=== PATIENT | female | born 1950 | race Caucasian/White ===

== ENCOUNTER 2016-07-25 18:16 | Inpatient (IN) | payer OTHER, MEDICARE ==
[~2016-07-25] VITALS: Ht 157.5 cm; Wt 66.7 kg
[2016-07-25 20:30] VITALS: BP 105/77; PULSE 65; RESP 18; O2SAT 95
[2016-07-25] MEDS ORDERED: PANT40TA2 PO (20:54)
[2016-07-25] MEDS ORDERED: RNT300T PO (20:54)
[2016-07-25] MEDS ORDERED: Heparin Initial Bolus IVPUSH ONE (20:55)
[2016-07-25] MEDS ORDERED: Heparin Protocol Boluses IVPUSH PRN (20:55)
[2016-07-25] MEDS ORDERED: Heparin 25K Unit/500mL 0.45 NS 25,000 UNIT in IV Premix 1 EACH IV SCH (20:55)
[2016-07-25] MEDS ORDERED: Pantoprazole 40 mg ER24 Tablet PO SCH (21:00)
[2016-07-25] MEDS ORDERED: Atropine 1 mg/10 mL (Code) Syringe IVPUSH PRN (21:15)
[2016-07-25] MEDS ORDERED: Ondansetron 2 mg/mL 2 mL Inj IVPUSH PRN (21:15)
[2016-07-25] MEDS ORDERED: Senna-Docusate 8.6-50 mg Tablet PO PRN (21:15)
[2016-07-25] MEDS ORDERED: Alum-Mag Hydrox-Simeth 30 mL Suspension PO PRN (21:15)
[2016-07-25] MEDS ORDERED: Polyethylene Glycol (PEG) 17 Gm Powder PO PRN (21:15)
--- NOTE | 2016-07-25 21:31 | PCM.HPMED ---
Subjective Date of Service Jul 25, 2016 Primary Provider: Admitting Physician: Christina Heranndez MD Primary Care Physician: Nopcp Attending Physician: Christina Hernandez MD Admit Status: Direct Admit, PCC Telemetry Chief Complaint: NSTEMI History of Present Illness: This Is a 66-year-old female who around noon time developed some substernal chest burning and she noted it was 9 out of 10. She also felt short of breath with that and approximately 15 minutes later went to the emergency room at [facility] for further investigational studies. She is an employee of [employer]. She has no prior history of cardiac disease. She does have a history of GERD for which she is on Protonix 40 mg in the a.m. and Zantac 300 mg at at bedtime daily. She has patient's initial troponin was 0.06 and repeat approximately 2 hours later was 10.46. EKG showed sinus rate of 97. NE interval was 170 QTc was 421 she did have possible hyperacute T waves in V2 to V5. She had a Q wave in lead 3. I have no old EKG for comparison. Dr. Mike, pension administrator, saw the patient at [facility] emergency room and recommended starting on an IV heparin drip, sublingual nitroglycerin when necessary. Patient was given IV metoprolol. The plan is for cardiac catheterization here at [facility] in the a.m. Review of Systems: All other review of systems are reviewed and are negative except for as in history of present illness. Allergies Coded Allergies: Sulfa (Sulfonamide Antibiotics) (Verified Allergy, Intermediate, Rash, 07/25) Home Medications Protonix 40 mg by mouth daily Zantac 300 mg by mouth at at bedtime daily PMH History of gastroesophageal reflux disease Surgical History Status post tubal ligation Status post hysterectomy but ovaries remain this was done in her early 50s. Family History No significant family history of cardiac disease Social History Hx Alcohol Use: No Hx Substance Use: No Living Arrangement: with Family Exam Vital Signs Vital Sign - Last Date Time Temp Pulse Resp B/P Pulse Ox O2 Delivery O2 Flow Rate FiO2 07/25/16 20:30 36.5 65 18 105/77 95 Room Air Exam Constitutional: Middle-aged female in no acute distress Head: Normocephalic atraumatic Eyes: PERRLA DC EOMI Neck no adenopathy no JVD, carotids 2+ over 4 without bruits bilaterally Chest: Scant crackles at her bases bilaterally Cor: Regular rate and rhythm S1-S2 without murmur Abdomen: Soft nontender bowel sounds present Extremities: No pedal edema Skin: No rashes Psych: Mood and affect are appropriate Neuro: There are no oriented 3, motor strength is intact bilaterally. Lab and Diagnostics Labs White count 7.3 hemoglobin 13.9 hematocrit 42.3 MCV 86 platelets 271 with 61% polys 25% lymphs Glucose 99 BUN 14 creatinine 0.7 calculated GFR is greater than 60 sodium 142 potassium 3.5 chloride 104. Bicarbonate 28 calcium 9.4 total protein 8.2 albumin 4.3 total bili 0.4 alkaline phosphatase 93 AST 26 ALT 31 magnesium 2.0 CPK 79 urine analysis is pending 12-lead ECG As dictated in history of present illness Assessment & Plan # Acute NSTEMI, present on admission Check serial troponins Check EKG here after arrival and in a.m. IV heparin drip per cardiac protocol Sublingual nitroglycerin when necessary and patient currently has nitro paste topically on Dr. Crawford has seen the patient and plans on cardiac catheterization in the a.m. Check fasting lipid panel in the a.m. # Gastroesophageal reflux disease, chronic, present on admission Mild dose with IV Protonix 40 mg and can switch over to by mouth daily in a.m. and continue with Zantac 300 mg by mouth at bedtime daily # DVT prophylaxis Currently on IV heparin #CODE STATUS Full code Pain Evaluation: Adequate Pain Control GI Prophylaxis: H2 radha, Proton Pump Inhibitor VTE Prophylaxis: Other (IV heparin drip per cardiac protocol) VTE Mechanical Devices: Intermittant Pneumatic CD Resuscitation Status: CPR: Attempt Resuscitation Time spent 60 minutes Christina Hernandez MD Jul 25, 2016 21:31
[2016-07-25] MEDS: 0.9% Sodium Chloride 1,000 ML IV SCH (21:42)
[2016-07-25] MEDS: Sodium Chloride LOK Flush 10 mL Syringe IVFLUSH SCH (21:58)
[2016-07-25 22:11] LABS: APPEARANCE,URINE HAZY (CLEAR,HAZY); COLOR,URINE STRAW (YELLOW); OCCULT BLOOD,URINE TRACE (NEGATIVE)
[2016-07-25 22:12] LABS: UROBILINOGEN,URINE NORMAL (NORMAL)
--- NOTE | 2016-07-25 23:19 | HP ---
[address] [address] HISTORY AND PHYSICAL PATIENT: JOANNA PISANO : 1950 MR#: [id number] ADMIT: 07/25/2016 JOB ID: [id number] CHIEF COMPLAINT: Chest discomfort. 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 Around noontime, she started noticing burning in her chest. She is a frequent heartburn sufferer, however, this was different. She did not have any reflux. The discomfort was more intense. It did not radiate. She denies any autonomic symptoms. She went to [place] emergency department, where her 1st troponin was negative. Her EKG was unremarkable though there is some report there might have been ST elevation which was transient. I did not see those tracings. The patient was treated with nitroglycerin, IV heparin, metoprolol a GI cocktail and pain subsided after two hours. A repeat troponin was positive and I was contacted and the patient was transferred to [facility]. PAST MEDICAL HISTORY: Mainly for reflux. PAST SURGICAL HISTORY: Status post hysterectomy and tubal ligation. MEDICATIONS: 1. Protonix 40 mg 2. Zantac 300 mg. FAMILY HISTORY: Negative. PERSONAL HISTORY: Nonsmoker, nondrinker. REVIEW OF SYSTEMS: Comprehensive review of system was done and is negative. Pertinent negatives are no GI or bleeding. No upcoming surgeries. No TIAs or strokes. PHYSICAL EXAMINATION: Comfortable. Pulse 60, blood pressure 110/70. Neck is supple. No JVD. No bruits. Chest: A few right-sided crackles that clear partially with coughing. Heart sounds S1, S2, regular. No murmurs, no gallops. Abdomen is soft. Extremities: Negative for CCE. Radial pulses were 2+. Femoral pulses 2+. LABORATORY DATA: Was reviewed. Mainly significant for positive troponin. ASSESSMENT AND PLAN: This lady presents with a non-ST elevation myocardial infarction. She is being transferred to [facility] and I have spoken with the patient. She will have an angiogram tomorrow. The risks, benefits and alternatives were explained to her. In the meantime, we will keep her anticoagulated. We will start beta blockade and add aspirin and heparin to her current regimen.
[2016-07-25 23:32] VITALS: BP 109/70; PULSE 63; RESP 18; O2SAT 92
[2016-07-26] VITALS (18 sets, daily range): BP systolic 97–119; BP diastolic 61–74; PULSE 65–75; RESP 12–18; O2SAT 90–95
[2016-07-26] MEDS ORDERED: 0.9% Sodium Chloride 1,000 ML IV SCH
[2016-07-26 03:33] LABS: BASOPHILS % (AUTO) 0.3 % (0-3); EOSINOPHILS % (AUTO) 0.9 % (0-5); MONOCYTES % (AUTO) 9.8 % (4-12); Mean Corpuscular Hemoglobin 27.8 pg (27.0-35.0); Mean Corpuscular Volume 85.3 fL (81-100); NEUTROPHILS % (AUTO) 74.2 % (40-74); Platelet Count 216 bil/L (150-400)
[2016-07-26 04:05] LABS: TROPONIN T 1.08 ug/L (0.0-0.011)
--- NOTE | 2016-07-26 05:42 | NUR ---
Admit/ Cardiac: Direct admit from [facility]. Report received from [facility] prior to transfer. Pt denies Chest pain, Tele SR 60s. Sp02 90s on RA. Heparin gtt infusing per cardiac protocol. Pt has been NPO for procedure today.
[2016-07-26] MEDS ORDERED: Pantoprazole 4 mg/mL 10 mL Inj IVPUSH SCH (07:30)
[2016-07-26] MEDS: Sodium Chloride LOK Flush 10 mL Syringe IVFLUSH SCH (08:20)
[2016-07-26] MEDS ORDERED: Heparin 1,000 Units/500 mL NS Premix IV ONE (08:39)
[2016-07-26] MEDS ORDERED: 0.9% Sodium Chloride 2,000 ML ONE (08:39)
[2016-07-26] MEDS ORDERED: Heparin 1,000 Unit/mL 10 mL Inj ONE ×2 (08:40→09:15)
[2016-07-26] MEDS ORDERED: fentaNYL-PF 50 mCg/mL 2 mL Inj ONE (09:15)
[2016-07-26] MEDS ORDERED: Nitroglycerin 50,000 mcg/250 mL D5W Premix IV ONE (09:15)
[2016-07-26] MEDS ORDERED: Verapamil 2.5 mg/mL 2 mL Inj ONE (09:15)
[2016-07-26] MEDS: 0.9% Sodium Chloride 1,000 ML IV SCH (09:41)
--- NOTE | 2016-07-26 09:41 | NUR ---
Off Unit Patient off unit to [facility] for procedure
--- NOTE | 2016-07-26 10:35 | CS94 ---
[address] [address] DIAGNOSTIC CARDIAC CATHETERIZATION PATIENT: JOANNA PISANO : 1950 MR#: [id number] ADMIT: 07/25/2016 JOB ID: [id number] SERVICE DATE: 07/26/2016 PROCEDURE: 1. Selective right and left coronary angiography. 2. Left heart catheterization. INDICATION: Non ST-elevation [place]. PROCEDURAL DETAILS: The procedure was done via right radial approach using a 5/6-Yemeni slender sheath. The rest of the procedural details are enumerated in the procedure log to which the reader and the coders are referred. ANGIOGRAPHIC FINDINGS: 1. RCA is a large caliber dominant vessel free of any significant disease. 2. Left main: No significant disease. 3. LAD is a transapical vessel. In its mid segment it has a long tubular stenosis of about 50%. At this point, the vessel narrows down to 2 mm or less. 4. Circumflex is nondominant and free of any critical disease. 5. Left heart catheterization revealed apical hypokinesis. EF is otherwise preserved. There was no intracavitary gradient. LVEDP was elevated at 25. There was no gradient upon pullback across the aortic valve. RECOMMENDATIONS: This lady has long tubular stenosis of about 50% in her mid LAD. This would require a long area of stenting with a relatively small caliber stent. I am not quite sure if the distal vessel will be able to dilate enough to take a 2.25 vessel stent. I think the appropriate step here would be a trial of aggressive medical therapy. I will be discussing all this with the patient.
--- NOTE | 2016-07-26 12:56 | NUR ---
IGOR PT WAS RECEIVED FROM [employer] AT 1017. RIGHT WRIST WITH TR BAND INTACT, RIGHT RADIAL PULSE 2+. PT DENIES ANY PAIN AND HAS USED THE BEDPAN X1. TR BAND WAS REMOVED WITH ADDITIONAL TIME NEEDED DUE TO MINIMAL OOZING. TR BAND REMOVED SUCCESSFULLY AT 1245. OPSITE AND GAUZE DRSG APPLIED. REPORT CALLED TO BLAKE Bess RN AND PT AND HER NURSING CARE WERE TRANSFERRED BACK TO ROOM 2028 AT 1300.
--- NOTE | 2016-07-26 14:18 | NUR ---
Social Work: Initial Assessment D: Per EMR review, pt is a 66 year old female admitted for NSTEMI. Pt is [employer] Medicare with no LTC insurance or VA benefits. [facility]. NOK is Олег Deal, spouse, . Advanced directives not completed- declined information from COUNTER INTELLIGENCE AGENT. Readmit score is not entered at this time. COUNTER INTELLIGENCE AGENT met with pt at bedside. Sw role explained and contact information provided. See initial assessment. Pt lives in in a town home in [place] with her spouse. Pt states there are many stairs in the house but the main living quarters are on the main floor. Pt is I with ADLs and uses no DME. Pt has never had HH or skilled rehab. Pt continues to drive and works at [employer]. Pt anticipates no d/c needs and states her family with transport her home when ready. A: Pt who is I at baseline. P: Anticipate pt to discharge home via POV once medically stable; COUNTER INTELLIGENCE AGENT to continue to follow if needs arise. MAN Gallegos Addendum: 07/26/16 at 1422 by LAM HANSEN Amended: Links added.
--- NOTE | 2016-07-26 14:34 | NUR ---
PT BACK TO PCC UNIT Pt back to PCC unit in room 2028 @ 1300 w/family, post R radial catheterization, T-band removed on . Pt's VS stable, denies SOB or chest px. Pt denies any pain in general, but states that her op site is slightly tender. Pt's R radial site elevated, dressing CDI, radial pulses palpable and equal, no signs of bruising. Pt up to BR w/o difficulty. Pt sitting comfortably w/family eating lunch. Pt denies abdominal discomfort or n/v.
--- NOTE | 2016-07-26 15:20 | PCM.DIMED ---
Discharge Instructions Date of Service Jul 26, 2016 Dates of Hospitalization Jul 25, 2016 at 20:20 Discharge Diagnosis Discharge Diagnosis 1. NSTEMI, POA. 2. CAD with a long area of tubular LAD stenosis not felt to be amenable to stenting because of length. 3. Chronic GERD Diet Heart Healthy Activity No restrictions Call your provider Shortness of breath, Chest pain Patient Instructions Follow-up with your PCP (Jocelyn queen Davis) in 1-2 weeks. Follow up with Dr. Davis of cardiology in 2 months. Provider: Jair Davis MD Follow-up in: 6 weeks Kalia Bryson MD Jul 26, 2016 15:20
[2016-07-26] MEDS ORDERED: LISI2.5T PO (15:22)
[2016-07-26] MEDS ORDERED: CLOP75TA3 PO (15:22)
[2016-07-26] MEDS ORDERED: ASPI-973 PO (15:22)
[2016-07-26] MEDS ORDERED: METO25TA99 PO (15:22)
[2016-07-26] MEDS ORDERED: NITR0.4T SL (15:22)
[2016-07-26] MEDS ORDERED: ATOR40TA69 PO (15:22)
--- NOTE | 2016-07-26 16:03 | PCM.DC.MED ---
Discharge Summary Date of Service Jul 26, 2016 Dates of Hospitalization Date of Hospital Admission Jul 25, 2016 at 20:20 Date of Discharge: Jul 26, 2016 Providers: Admitting Physician: Christina Hernandez MD Primary Care Physician: Valerie Sykes DO Attending Physician: Christina Hernandez MD Diagnosis at Time of Discharge Diagnosis at Time of Discharge 1. NSTEMI, POA. 2. CAD with a long area of tubular LAD stenosis not felt to be amenable to stenting because of length. 3. Chronic GERD Consultations Cardiology,, Dr Davis Procedures XRay, CTs & MRIs Chest x-ray unremarkable ECG 12 Lead As dictated in history of present illness Invasive Procedures 1. Selective right and left coronary angiography. 2. Left heart catheterization. INDICATION: Non ST-elevation [place]. PROCEDURAL DETAILS: The procedure was done via right radial approach using a 5/6-Czech slender sheath. The rest of the procedural details are enumerated in the procedure log to which the reader and the coders are referred. ANGIOGRAPHIC FINDINGS: 1. RCA is a large caliber dominant vessel free of any significant disease. 2. Left main: No significant disease. 3. LAD is a transapical vessel. In its mid segment it has a long tubular stenosis of about 50%. At this point, the vessel narrows down to 2 mm or less. 4. Circumflex is nondominant and free of any critical disease. 5. Left heart catheterization revealed apical hypokinesis. EF is otherwise preserved. There was no intracavitary gradient. LVEDP was elevated at 25. There was no gradient upon pullback across the aortic valve. RECOMMENDATIONS: This lady has long tubular stenosis of about 50% in her mid LAD. This would require a long area of stenting with a relatively small caliber stent. I am not quite sure if the distal vessel will be able to dilate enough to take a 2.25 vessel stent. I think the appropriate step here would be a trial of aggressive medical therapy. I will be discussing all this with the patient. Brief History This Is a 66-year-old female who around noon time developed some substernal chest burning and she noted it was 9 out of 10. She also felt short of breath with that and approximately 15 minutes later went to the emergency room at [facility] for further investigational studies. She is an employee of [employer]. She has no prior history of cardiac disease. She does have a history of GERD for which she is on Protonix 40 mg in the a.m. and Zantac 300 mg at at bedtime daily. She has patient's initial troponin was 0.06 and repeat approximately 2 hours later was 10.46. EKG showed sinus rate of 97. [place] interval was 170 QTc was 421 she did have possible hyperacute T waves in V2 to V5. She had a Q wave in lead 3. I have no old EKG for comparison. Dr. Mike, radiation oncology manager, saw the patient at [facility] emergency room and recommended starting on an IV heparin drip, sublingual nitroglycerin when necessary. Patient was given IV metoprolol. The plan is for cardiac catheterization here at [facility] in the a.m. Hospital Course # Acute NSTEMI, present on admission Check serial troponins Check EKG here after arrival and in a.m. IV heparin drip per cardiac protocol Sublingual nitroglycerin when necessary and patient currently has nitro paste topically on Dr. Crawford has seen the patient and plans on cardiac catheterization in the a.m. Check fasting lipid panel in the a.m. # Gastroesophageal reflux disease, chronic, present on admission Mild dose with IV Protonix 40 mg and can switch over to by mouth daily in a.m. and continue with Zantac 300 mg by mouth at bedtime daily # DVT prophylaxis Currently on IV heparin #CODE STATUS Full code Hospital course. She was admitted for an NSTEMI. She was treated typical fashion and heparinized. On the day of discharge she is taking the coronary catheterization lab and underwent angiography revealing a lying LAD lesion was not felt to be amenable to stenting. Aggressive medical therapy was recommended instead. Cardiac medications were discussed with cardiology prior to discharge. Cardiology felt the patient could discharge on July 26. The patient understood the diagnosis and plan of medical treatment as well as follow -up plans and was amenable to discharge. She had no further symptoms following transfer to [facility]. Exam Vital Signs (Last) Date Time Temp Pulse Resp B/P Pulse Ox O2 Delivery O2 Flow Rate FiO2 07/26/16 13:07 37.0 70 16 118/74 95 Room Air Exam Oriented 3 no distress. Lungs are clear with normal effort and rate. Heart is regular without murmur gallop or rub. Abdomen soft nontender Extremities free of edema Right arm is unremarkable where she had a radial approach for her angiography. Test 07/25/16 20:50 07/25/16 22:02 07/26/16 03:06 07/26/16 11:17 Hemoglobin A1c 5.8% (4.8-5.6) Magnesium Level 2.0mg/dL (1.6-2.6) Thyroid Stimulating Hormone (TSH) 3.100uIU/mL (0.450-4.500) Urine Color Straw (YELLOW) Urine Appearance Hazy (CLEAR,HAZY) Urine pH 7.0 (5.0-8.0) Urine Specific [place] 1.010 (1.003-1.035) Urine Protein Negativemg/dL (NEG,TRACE) Urine Glucose (UA) Negativemg/dL (NEGATIVE) Urine Ketones Negativemg/dL (NEGATIVE) Urine Occult Blood Trace (NEGATIVE) Urine Nitrite Negative (NEGATIVE) Urine Bilirubin Negative (NEGATIVE) Urine Urobilinogen Normalmg/dL (NORMAL) Urine Leukocyte Esterase Large (NEGATIVE) Urine RBC 0-2/hpf (0-2) Urine WBC 11-50/hpf (0-5) Urine Epithelial Cells Few/hpf (NONE-MOD) Urine Crystals None seen (NONE SEEN) Urine Bacteria Moderate/hpf (NONE-FEW) Urine Hyaline Casts None/lpf (NONE) Urine Granular Casts None seen (NONE SEEN) Urine Waxy Casts None seen (NONE SEEN) Urine Red Blood Cell Casts None seen (NONE SEEN) Urine White Blood Cell Casts None seen (NONE SEEN) Urine Mucus None seen (None Seen) Urine Trichomonas None seen (NONE SEEN) Urine Yeast None (NONE SEEN) Urinalysis Comment None Urine Culture Reflexed Indicated White Blood Count 7.8th/mm3 (3.8-10.1) Red Blood Count 4.49mil/mm3 (3.90-5.20) Hemoglobin 12.5g/dL (12.0-15.6) Hematocrit 38.3% (35.0-46.0) Mean Corpuscular Volume 85.3fL (81-100) Mean Corpuscular Hemoglobin 27.8pg (27.0-35.0) Mean Corpuscular Hemoglobin Concent 32.6% (32.0-37.0) Red Cell Distribution Width 14.0% (12.3-15.4) Platelet Count 216bil/L (150-400) Neutrophils (%) (Auto) 74.2% (40-74) Lymphocytes (%) (Auto) 14.5% (14-46) Monocytes (%) (Auto) 9.8% (4-12) Eosinophils (%) (Auto) 0.9% (0-5) Basophils (%) (Auto) 0.3% (0-3) Sodium Level 139mEq/L (134-144) Potassium Level 4.2mEq/L (3.5-5.2) Chloride Level 105mEq/L (97-108) Carbon Dioxide Level 23mmol/L (18-29) Blood Urea Nitrogen 13mg/dL (8-27) Creatinine 0.52mg/dL (0.57-1.00) Estimat Glomerular Filtration Rate 169mL/min (>59) Glucose Level 108mg/dL (60-99) Calcium Level 8.6mg/dL (8.5-10.1) Total Creatine Kinase 369U/L (21-215) Creatine Kinase MB 35.9ng/mL (0.0-5.3) Creatine Kinase MB % 9.7% (0.0-5.0) Troponin T 1.08ug/L (0.0-0.011) Triglycerides Level 102mg/dL (0-149) Cholesterol Level 221mg/dL (100-199) LDL Cholesterol, Calculated 144.600mg/dL (0-99) VLDL Cholesterol 20.400mg/dL HDL Cholesterol 56mg/dL (>39) Cholesterol/HDL Ratio 3.95 (0.0-4.4) Activated Partial Thromboplast Time 114.8sec (22.8-33.0) Discharge Medications Discharge Medications Aspirin (Aspirin) 81 Mg Tablet 81 MG PO DAILY Prescribed by: KALIA LUIS MD Atorvastatin Calcium (Atorvastatin Calcium) 40 Mg Tablet 40 MG PO HS Prescribed by: KALIA LUIS MD Clopidogrel Bisulfate (Plavix) 75 Mg Tablet 75 MG PO DAILY Prescribed by: KALIA LUIS MD Lisinopril (Lisinopril) 2.5 Mg Tablet 2.5 MG PO DAILY Prescribed by: KALIA LUIS MD Metoprolol Succinate ER (Metoprolol Succinate ER) 25 Mg Tab.er.24h 25 MG PO DAILY Prescribed by: KALIA LUIS MD Pantoprazole DR (Protonix) 40 Mg Tablet 40 MG PO DAILY (Reported) Ranitidine (Zantac) 300 Mg Tablet 300 MG PO HS (Reported) As needed Nitroglycerin SL (Nitrostat) 0.4 Mg Tab.subl 0.4 MG SL Q5MIN PRN PRN For Chest Pain Prescribed by: KALIA LUIS MD Followup Plan Disposition: Home Discharge Diet: Heart Healthy Discharge Activity: No restrictions Patient Instructions Follow-up with your PCP (Jocelyn queen Joseph) in 1-2 weeks. Follow up with Dr. Davis of cardiology in 2 months. Provider: Jair Davis MD Follow-up in: 6 weeks Time spent 50 minutes Kalia Luis MD Jul 26, 2016 16:03
--- NOTE | 2016-07-26 16:11 | NUR ---
Discharge Patient s/p heart cath this AM. Diagnostic cath via R radial approach, site is soft, no signs of bruising/bleeding. Patient denies pain/discomfort. VSS. Insertion site dressing C/D/I, no direct observation of wound. Patient education done for all new medication and paper Rx given. Discharge instructions printed and reviewed with patient. UA made follow up appt for patient, however patient stated that MD listed was no longer her PCP. Patient stated she would schedule her own follow up appt with her current PCP for next week. All patient questions answered. IV's DC'd intact x2. Patient ambulated off unit with all personal belongings accompanied by her friend. Transported home via personal vehicle.
--- NOTE | 2016-07-26 17:06 | DRSVH ---
PROCEDURE: X-RAY CHEST ONE VIEW, PORTABLE ([id number]) INDICATIONS: NSTEMI TECHNIQUE: One view of the chest was acquired. COMPARISON: None. FINDINGS: Surgical changes and devices: None. Lungs and pleura: No pleural effusions or pneumothorax. Lungs are clear, aside from mild basilar rock bsegmental atelectasis. Mediastinum: Mediastinal contours appear normal. Heart size is normal. Bones and chest wall: No suspicious bony lesions. Overlying soft tissues appear unremarkable. IMPRESSION: No acute cardiopulmonary disease. Dictated by: Dhruv Cassidy [facility] Interpreted: Milena Moncada MD on 07/26/2016 at 10:12 Transcribed by: EBRTO on 07/26/2016 at 10:12 Approved by: Milena Moncada MD, PhD on 07/26/2016 at 17:00
== END 2016-07-26 16:01 | disposition home or self-care (01) | DRG 282 ==
LOC: OBSVTOIN 20:20 → PCC 20:20
PROVIDERS: ADMIT Specialist; ATTEND Specialist
PROC: B211YZZ Fluoroscopy of Multiple Coronary Arteries using Other Contrast (ICD-10-PCS; principal; 2016-07-26)
PROC: 4A023N7 Measurement of Cardiac Sampling and Pressure, Left Heart, Percutaneous Approach (ICD-10-PCS; 2016-07-26)
DX: I21.4 Non-ST elevation (NSTEMI) myocardial infarction (principal); K21.9 Gastro-esophageal reflux disease without esophagitis; I25.10 Atherosclerotic heart disease of native coronary artery without angina pectoris